=== PATIENT | female | born 1970 ===

== ENCOUNTER → 2018-08-29 | Outpatient (CLI) | payer OTHER ==
[~2018-08-29] MED LIST: FERRETTS325 MG; Fergon240 M1; MEDR10
== END | disposition home or self-care (01) ==
LOC: LAB SHORT 13:10 → PLD 13:10
DX: N93.8 Other specified abnormal uterine and vaginal bleeding (principal)
CPT/HCPCS: 88305

== ENCOUNTER 2018-10-11 06:16 | Day surgery (SDC) | payer OTHER ==
[~2018-10-11] VITALS: Ht 172.7 cm; Wt 100.9 kg
--- NOTE | 2018-10-11 08:02 | NUR ---
10/11/18 0802 Dell Guardado DEFICIT 140ML. DR SEGURA AWARE.
--- NOTE | 2018-10-11 08:28 | NUR ---
10/11/18 0828 Emerald Westbrook V PT RESTING IN RECLINER, CALL LIGHT WITHIN REACH, VSS. PT STATES SHE FEELS "A LITTLE BIT NAUSEOUS" AFTER TRANSFERING FROM BED TO RECLINER BUT DOES NOT NEED ANY INTERVENTIONS AT THIS TIME.
--- NOTE | 2018-10-11 10:05 | NUR ---
10/11/18 Chris5 Mary Anthony discharged to home, awake alert verbalized unstanding of discharge instructions , and meds, denies pain and nausea, home with friend
== END 2018-10-11 10:05 | disposition home or self-care (01) ==
LOC: ORSCSDS 06:16
PROVIDERS: Obstetrics & Gynecology
PROC: 0U5B8ZZ Destruction of Endometrium, Via Natural or Artificial Opening Endoscopic (ICD-10-PCS; principal; 2018-10-11 07:30)
DX: N92.0 Excessive and frequent menstruation with regular cycle (principal); D50.0 Iron deficiency anemia secondary to blood loss (chronic); E66.9 Obesity, unspecified; Z68.33 Body mass index [BMI] 33.0-33.9, adult; Z79.899 Other long term (current) drug therapy
CPT/HCPCS: 88305; J1100; J1885; J2250; J2405; J3010; J7120